=== PATIENT | male | born 1965 | race Hispanic/Latino ===

== ENCOUNTER 2018-12-29 15:51 | Emergency (ER) | payer OTHER | END 2018-12-29 16:44 | disposition home or self-care (01) | LOC: EDH 15:51 | DX: F41.9 Anxiety disorder, unspecified (principal); F13.20 Sedative, hypnotic or anxiolytic dependence, uncomplicated; I10 Essential (primary) hypertension; Z90.49 Acquired absence of other specified parts of digestive tract; Z88.8 Allergy status to other drugs, medicaments and biological substances ==

== ENCOUNTER 2019-05-04 11:24 | Emergency (ER) | payer OTHER ==
[2019-05-04] MEDS ORDERED: MORPHINE SULFATE 4 MG/1ML SYG ONE (11:31)
[2019-05-04] MEDS ORDERED: ONDANSETRON HCL 4 MG/2 ML VIAL ONE (11:31)
[2019-05-04] MEDS ORDERED: TETANUS/DIPHTHERIA TOXOID [ADULT] 0.5 ML VIAL IM ONE (11:32)
[2019-05-04] MEDS ORDERED: LIDOCAINE 1%-EPI 1:100,000 20 ML VIAL IJ SCH (11:45)
== END 2019-05-04 15:12 | disposition home or self-care (01) ==
LOC: EDH 11:24
DX: S71.112A Laceration without foreign body, left thigh, initial encounter (principal); F41.9 Anxiety disorder, unspecified; I10 Essential (primary) hypertension; F10.20 Alcohol dependence, uncomplicated; Z98.890 Other specified postprocedural states; Z90.49 Acquired absence of other specified parts of digestive tract; Z79.899 Other long term (current) drug therapy; W26.8XXA Contact with other sharp object(s), not elsewhere classified, initial encounter; Y93.89 Activity, other specified; Y92.098 Other place in other non-institutional residence as the place of occurrence of the external cause; Y99.8 Other external cause status
CPT/HCPCS: 12032; 73552; 90471; 90714; 96374; 96375; 99283; J2270; J2405; J3490

== ENCOUNTER 2021-05-04 20:42 | Emergency (ER) | payer OTHER ==
[~2021-05-04] VITALS: Ht 172.7 cm; Wt 91.6 kg
[2021-05-04] MEDS ORDERED: CEFAZOLIN SODIUM 1 GM VIAL IVP SCH (21:00)
[2021-05-04] MEDS ORDERED: TETANUS/DIPHTHERIA TOXOID [ADULT] 0.5 ML VIAL IM ONE (21:00)
[2021-05-04] MEDS ORDERED: LIDOCAINE HCL/EPINEPHRINE 30 ML VIAL IJ SCH (21:00)
[2021-05-04] MEDS ORDERED: 0.9%NACL 1000ML 1,000 ML IV ONE (21:00)
[2021-05-04 21:54] LABS: BASOPHILS % (AUTO) 1.4 % (0.0-5.0); EOSINOPHILS % (AUTO) 1.2 % (0.0-8.0); HEMATOCRIT 34.3 % (42-54); LYMPHOCYTES % (AUTO) 33.7 % (21.0-51.0); MEAN CORPUSCULAR HGB CONC 35.3 g/dL (32.0-36.0); MEAN CORPUSCULAR VOLUME 96.3 fL (79-99); NEUTROPHILS % (AUTO) 50.5 % (40.0-77.0); PLATELET COUNT (AUTO) 164 K/uL (130-400); RED BLOOD CELL COUNT(AUTO) 3.56 MIL/uL (4.50-6.20); RED CELL DISTRIBUTION WIDTH 13.7 % (11.0-15.5); WHITE BLOOD COUNT (AUTO) 4.3 K/uL (4.8-10.8)
[2021-05-04 22:36] LABS: CREATININE 0.7 mg/dL (0.5-1.5); POTASSIUM 3.6 mmol/L (3.5-5.1)
[2021-05-04 22:42] LABS: ALBUMIN 3.8 g/dL (3.5-5.0); BILIRUBIN,TOTAL 0.6 mg/dL (0.2-1.0); TOTAL PROTEIN, SERUM 8.9 g/dL (6.0-8.3)
[2021-05-04] MEDS ORDERED: ACET-2247 PO (23:23)
[2021-05-04 23:41] VITALS: BP 116/72
== END 2021-05-05 00:16 | disposition home or self-care (01) ==
LOC: EDH 20:42
DX: S01.21XA Laceration without foreign body of nose, initial encounter (principal); S16.1XXA Strain of muscle, fascia and tendon at neck level, initial encounter; F10.10 Alcohol abuse, uncomplicated; F41.9 Anxiety disorder, unspecified; E86.0 Dehydration; Z88.8 Allergy status to other drugs, medicaments and biological substances; Z79.899 Other long term (current) drug therapy; Y90.9 Presence of alcohol in blood, level not specified; W01.0XXA Fall on same level from slipping, tripping and stumbling without subsequent striking against object, initial encounter; Y93.89 Activity, other specified; Y92.096 Garden or yard of other non-institutional residence as the place of occurrence of the external cause; Y99.8 Other external cause status
CPT/HCPCS: 12011; 36415; 70450; 70486; 71045; 72125; 80053; 84484; 85025; 90471; 90714; 96361; 96374; 99285; J0690; J7030

== ENCOUNTER 2021-06-14 20:15 | Observation (INO) | payer OTHER ==
[~2021-06-14] VITALS: Ht 172.7 cm; Wt 88.7 kg
[~2021-06-14 20:15] MED LIST: ACET-2247 PO
[2021-06-14] MEDS ORDERED: ONDANSETRON 4MG INJ IVP ONE (20:30)
[2021-06-14] MEDS ORDERED: MORPHINE 2 MG SYG IVP ONE (20:30)
[2021-06-14 21:05] LABS: BASOPHILS % (AUTO) 1.1 % (0.0-5.0); HEMATOCRIT 36.5 % (42-54); LYMPHOCYTES % (AUTO) 37.8 % (21.0-51.0); MEAN CORPUSCULAR HEMOGLOBIN 34.4 pg (27.0-33.0); MEAN CORPUSCULAR HGB CONC 35.9 g/dL (32.0-36.0); MEAN CORPUSCULAR VOLUME 95.8 fL (79-99); MONOCYTES % (AUTO) 11.9 % (3.0-13.0); PLATELET COUNT (AUTO) 179 K/uL (130-400); RED BLOOD CELL COUNT(AUTO) 3.81 MIL/uL (4.50-6.20); RED CELL DISTRIBUTION WIDTH 11.5 % (11.0-15.5); WHITE BLOOD COUNT (AUTO) 5.3 K/uL (4.8-10.8)
[2021-06-14 21:07] LABS: APPEARANCE,URINE Clear (CLEAR); BILIRUBIN,URINE Negative (NEGATIVE); COLOR,URINE Yellow (YELLOW); GLUCOSE, URINE (UA) Negative (NEGATIVE); KETONES,URINE Negative (NEGATIVE); LEUKOCYTE ESTERASE ,URINE Negative (NEGATIVE); NITRATE,URINE Negative (NEGATIVE); OCCULT BLOOD,URINE Negative (NEGATIVE); PH,URINE 5.5 (5.0-8.0); PROTEIN,URINE Negative (NEGATIVE); UROBILINOGEN,URINE 0.2 mg/dL (0.2-1.0)
[2021-06-14 21:23] LABS: ALBUMIN 3.7 g/dL (3.5-5.0); BILIRUBIN,TOTAL 0.6 mg/dL (0.2-1.0); CREATININE 0.8 mg/dL (0.5-1.5); POTASSIUM 3.7 mmol/L (3.5-5.1); TOTAL PROTEIN, SERUM 8.9 g/dL (6.0-8.3)
[2021-06-14] MEDS ORDERED: ONDANSETRON 4MG INJ ONE (21:32)
[2021-06-14] MEDS ORDERED: MORPHINE 2 MG SYG ONE (21:33)
[2021-06-14] MEDS ORDERED: THIAMINE HCL 100 MG/ML 2ML VIAL IVP SCH (22:00)
[2021-06-14] MEDS ORDERED: 0.9%NACL 1000ML 1,000 ML IV ONE (22:00)
[2021-06-15] MEDS ORDERED: DEXTROSE 50%-WATER 50 ML DISP.SYRIN IV PRN (02:00)
[2021-06-15] MEDS ORDERED: POTASSIUM CHLORIDE 20MEQ/100ML 100 ML IV PRN (02:00)
[2021-06-15] MEDS ORDERED: GLUCAGON 1MG KIT 1 MG ML IM PRN (02:00)
[2021-06-15] MEDS ORDERED: ACETAMINOPHEN 325 MG TAB PO PRN ×2 (02:00)
[2021-06-15] MEDS ORDERED: ZOLPIDEM TARTRATE 5 MG TAB PO PRN (02:00)
[2021-06-15] MEDS ORDERED: MAG/ALUM/SIMETH 30 ML UDCUP PO PRN (02:00)
[2021-06-15] MEDS ORDERED: ONDANSETRON 4MG INJ IV PRN (02:00)
[2021-06-15] MEDS ORDERED: GUAIFENESIN-DM 200/20 MG 10 ML PO PRN (02:00)
[2021-06-15] MEDS ORDERED: LACTULOSE 20 GM/30 ML UDCUP PO PRN (02:00)
[2021-06-15] MEDS ORDERED: NITROGLYCERIN 0.4 MG SL TAB SL PRN (02:00)
[2021-06-15] MEDS ORDERED: KCL 20 MEQ ERTAB PO PRN (02:00)
[2021-06-15] MEDS ORDERED: POTASSIUM CHLORIDE 10% ELIXIR 20 MEQ/15 ML UDCUP PO PRN (02:00)
[2021-06-15] MEDS ORDERED: 0.9%NACL 1000ML 1,000 ML IV SCH (02:00)
[2021-06-15] MEDS ORDERED: THIAMINE HCL 100 MG/ML 2ML VIAL ONE (02:12)
[2021-06-15] MEDS ORDERED: FOLIC ACID 5 MG/ML VIAL ONE (02:14)
[2021-06-15] MEDS ORDERED: M.V.I. IV [ADULT] 10 ML VIAL IV ONE (02:14)
[2021-06-15] MEDS: 0.9%NACL 1000ML 1,000 ML IV SCH ×2 (02:46→12:00)
[2021-06-15] MEDS: M.V.I. IV [ADULT] 10 ML, FOLIC ACID 1 MG, THIAMINE HCL 100 MG in 0.9%NACL 1000ML 1,000 ML IV SCH ×2 (02:46→09:00)
[2021-06-15] MEDS: INSULIN HUMULIN R 100 UNIT/ML 3ML SQ SCH ×3 (07:30→16:30)
[2021-06-15 08:38] LABS: EOSINOPHILS % (AUTO) 2.2 % (0.0-8.0); LYMPHOCYTES % (AUTO) 23.1 % (21.0-51.0); MEAN CORPUSCULAR HEMOGLOBIN 34.5 pg (27.0-33.0); MEAN CORPUSCULAR HGB CONC 34.2 g/dL (32.0-36.0); MEAN CORPUSCULAR VOLUME 100.8 fL (79-99); MONOCYTES % (AUTO) 10.7 % (3.0-13.0); NEUTROPHILS % (AUTO) 62.8 % (40.0-77.0); PLATELET COUNT (AUTO) 161 K/uL (130-400); RED BLOOD CELL COUNT(AUTO) 3.77 MIL/uL (4.50-6.20); RED CELL DISTRIBUTION WIDTH 11.9 % (11.0-15.5); WHITE BLOOD COUNT (AUTO) 4.1 K/uL (4.8-10.8)
[2021-06-15 08:54] LABS: ALBUMIN 3.6 g/dL (3.5-5.0); BILIRUBIN,DIRECT 0.3 mg/dL (0.0-0.3); BILIRUBIN,TOTAL 0.9 mg/dL (0.2-1.0); CREATININE 0.9 mg/dL (0.5-1.5); POTASSIUM 5.4 mmol/L (3.5-5.1); TOTAL PROTEIN, SERUM 8.7 g/dL (6.0-8.3)
[2021-06-15 08:59] VITALS: BP 126/68
[2021-06-15] MEDS ORDERED: M.V.I. IV [ADULT] 10 ML, FOLIC ACID 1 MG, THIAMINE HCL 100 MG in 0.9%NACL 1000ML 1,000 ML IV SCH (09:00)
[2021-06-15] MEDS: ENOXAPARIN SODIUM 40 MG/0.4 ML SYRINGE SQ SCH (09:00)
[2021-06-15] MEDS: FAMOTIDINE 20MG VIAL IV SCH (09:00)
[2021-06-15 11:44] VITALS: BP 120/72
[2021-06-15] MEDS ORDERED: ALPR1TAB7 PO (12:33)
[2021-06-15] MEDS ORDERED: SUCR1TAB2 PO (12:33)
[2021-06-15] MEDS ORDERED: OMEP20TA25 PO (12:33)
[2021-06-15] MEDS ORDERED: ONDA4TAB4 PO (12:33)
[2021-06-15] MEDS ORDERED: DICY20TA3 PO (12:33)
[2021-06-15] MEDS ORDERED: LISI20TA24 PO (12:33)
[2021-06-15] MEDS ORDERED: HYDR-3421 PO (12:33)
[2021-06-15 16:00] VITALS: BP 136/77
[2021-06-15] MEDS ORDERED: ACETAMINOPHEN 325 MG TAB PO SCH (17:30)
[2021-06-15] MEDS: ALPRAZOLAM 1 MG TAB PO PRN (17:49)
[2021-06-15] MEDS ORDERED: SUCRALFATE 1 GM TABLET ONE (19:45)
[2021-06-15] MEDS ORDERED: DICYCLOMINE HCL 20 MG TAB ONE (19:46)
[2021-06-15 20:00] VITALS: BP 126/67
[2021-06-15] MEDS: DICYCLOMINE HCL 20 MG TAB PO SCH (20:06)
[2021-06-15] MEDS: SUCRALFATE 1 GM TABLET PO SCH (20:06)
[2021-06-16] VITALS: BP 139/78
[2021-06-16 04:00] VITALS: BP 123/71
[2021-06-16] MEDS: INSULIN HUMULIN R 100 UNIT/ML 3ML SQ SCH ×3 (07:30→16:30)
[2021-06-16] MEDS: FAMOTIDINE 20MG VIAL IV SCH (07:57)
[2021-06-16 08:00] VITALS: BP 137/73
[2021-06-16] MEDS: DICYCLOMINE HCL 20 MG TAB PO SCH ×3 (08:00→17:00)
[2021-06-16] MEDS: SUCRALFATE 1 GM TABLET PO SCH ×2 (08:00→14:57)
[2021-06-16] MEDS: 0.9%NACL 1000ML 1,000 ML IV SCH (08:00)
[2021-06-16] MEDS: ALPRAZOLAM 1 MG TAB PO PRN (08:00)
[2021-06-16] MEDS: ENOXAPARIN SODIUM 40 MG/0.4 ML SYRINGE SQ SCH (08:02)
[2021-06-16] MEDS ORDERED: LISINOPRIL 20 MG TABLET PO SCH (09:00)
[2021-06-16] MEDS ORDERED: PANTOPRAZOLE 40 MG TAB DR PO SCH (09:00)
[2021-06-16] MEDS: M.V.I. IV [ADULT] 10 ML, FOLIC ACID 1 MG, THIAMINE HCL 100 MG in 0.9%NACL 1000ML 1,000 ML IV SCH ×2 (09:00→14:35)
[2021-06-16 09:01] LABS: POTASSIUM 4.1 mmol/L (3.5-5.1)
[2021-06-16 11:41] VITALS: BP 153/80
[2021-06-16 16:00] VITALS: BP 142/80
== END 2021-06-16 17:15 | disposition home or self-care (01) ==
LOC: EDH 20:15 → EDHIP 21:51 → 3CH 06-15 08:18
PROVIDERS: ADMIT Internal Medicine; ATTEND Internal Medicine
DX: R10.32 Left lower quadrant pain (principal); Z20.822 Contact with and (suspected) exposure to COVID-19; E87.1 Hypo-osmolality and hyponatremia; K21.9 Gastro-esophageal reflux disease without esophagitis; I10 Essential (primary) hypertension; F41.9 Anxiety disorder, unspecified; F10.10 Alcohol abuse, uncomplicated; E66.9 Obesity, unspecified; K57.92 Diverticulitis of intestine, part unspecified, without perforation or abscess without bleeding; R77.8 Other specified abnormalities of plasma proteins; Z90.49 Acquired absence of other specified parts of digestive tract; Z79.899 Other long term (current) drug therapy; Z98.890 Other specified postprocedural states; Z68.29 Body mass index [BMI] 29.0-29.9, adult
CPT/HCPCS: 36415 ×3; 71045; 74176; 80048; 80053 ×2; 81003; 82948 ×6; 83690 ×2; 84145; 84484; 85025 ×2; 87635; 93005; 96365; 96366 ×2; 96375; 99285; G0378 ×43; J1650; J2405; J3411 ×3; J3490 ×2; J7030; 80076